=== PATIENT | female | born 1965 ===

== ENCOUNTER 2022-04-13 09:15 | Inpatient (IN) | payer OTHER ==
[~2022-04-13] VITALS: Ht 160 cm; Wt 87.5 kg
[2022-04-13] MEDS ORDERED: CRESTOR10 MG PO (10:53)
[2022-04-13] MEDS ORDERED: PROTONIX40 MG PO (10:53)
[2022-04-13] MEDS ORDERED: TOPROL XL100 M1 PO (10:53)
[2022-04-13] MEDS ORDERED: VITAMIN D3 PO (10:54)
[2022-04-13] MEDS ORDERED: MAGNE PO (10:54)
[2022-04-13] MEDS ORDERED: STOOL SOFT PO (10:55)
[2022-04-16] MEDS ORDERED: VITAMIN D310 MC4 PO (08:08)
[2022-04-16] MEDS ORDERED: STOOL SOFTENER240 MG PO (08:09)
[2022-04-16] MEDS ORDERED: MAGNESIUM100 MG PO (08:13)
[2022-04-16] MEDS ORDERED: FAMOTIDINE40 MG PO (08:14)
[2022-04-19] MEDS ORDERED: OXYC1TAB9 PO (13:58)
[2022-04-19] MEDS ORDERED: HYOSCYAMINE0.125 M1 SL (13:59)
[2022-04-19] MEDS ORDERED: INTESTINEX680 M1 PO (13:59)
== END 2022-04-19 15:12 | disposition home or self-care (01) | DRG 330 ==
LOC: O/R 04-16 05:48 → SURG 04-16 05:48 → SURH 04-16 11:10 → O/R 04-16 12:06 → SURG 04-16 12:20
PROVIDERS: ADMIT Surgery; ATTEND Surgery
PROC: 0DBP4ZZ Excision of Rectum, Percutaneous Endoscopic Approach (ICD-10-PCS; 2022-04-16)
PROC: 0DJD8ZZ Inspection of Lower Intestinal Tract, Via Natural or Artificial Opening Endoscopic (ICD-10-PCS; 2022-04-16)
PROC: 4A12X4Z Monitoring of Cardiac Electrical Activity, External Approach (ICD-10-PCS; 2022-04-16)
PROC: 0DTN4ZZ Resection of Sigmoid Colon, Percutaneous Endoscopic Approach (ICD-10-PCS; principal; 2022-04-16 07:00)
DX: K57.30 Diverticulosis of large intestine without perforation or abscess without bleeding (principal); K56.690 Other partial intestinal obstruction; R10.9 Unspecified abdominal pain; R19.4 Change in bowel habit; Z20.822 Contact with and (suspected) exposure to COVID-19; I10 Essential (primary) hypertension; E78.49 Other hyperlipidemia; G47.33 Obstructive sleep apnea (adult) (pediatric); D75.1 Secondary polycythemia